=== PATIENT | female | born 1975 | race Hispanic/Latino ===

== ENCOUNTER 2019-07-09 22:27 | Emergency (ER) | payer SELFPAY ==
[2019-07-09] MEDS ORDERED: KETOROLAC TROMETHAMINE 60 MG/2 ML VIAL ONE (23:12)
[2019-07-09] MEDS ORDERED: CYCLOBENZAPRINE HCL 10 MG TABLET ONE (23:12)
== END 2019-07-10 00:56 | disposition home or self-care (01) ==
LOC: EDH 22:27
DX: M77.9 Enthesopathy, unspecified (principal); Z98.890 Other specified postprocedural states
CPT/HCPCS: 73030; 93005; 96372; 99284; J1885